=== PATIENT | male | born 1950 | race Caucasian/White ===

== ENCOUNTER 2023-03-10 12:13 | Emergency (ER) | payer MEDICARE, OTHER ==
[~2023-03-10] VITALS: Ht 177.8 cm; Wt 106.9 kg
[2023-03-10] MEDS ORDERED: LOSARTAN POTASS50 MG PO (12:23)
[2023-03-10] MEDS ORDERED: ROSUVASTATIN CA10 MG PO (12:23)
[2023-03-10] MEDS ORDERED: ALLOPURINOL300 MG PO (12:23)
[2023-03-10] MEDS ORDERED: ZOLPIDEM TARTRA10 MG PO (12:23)
[2023-03-10] MEDS ORDERED: ELIQUIS5 M1 PO (14:08)
[2023-03-10 14:17] VITALS: BP 137/81
== END 2023-03-10 14:17 | disposition home or self-care (01) ==
LOC: ED 12:13
DX: I82.4Z1 Acute embolism and thrombosis of unspecified deep veins of right distal lower extremity (principal); Z79.899 Other long term (current) drug therapy
CPT/HCPCS: 93971; 99283-25

== ENCOUNTER 2023-11-03 11:26 | Emergency (ER) | payer MEDICARE, OTHER ==
[~2023-11-03] VITALS: Ht 177.8 cm; Wt 106.6 kg
[~2023-11-03 11:26] MED LIST: ALLOPURINOL300 MG PO; ELIQUIS5 M1 PO; LOSARTAN POTASS50 MG PO; ROSUVASTATIN CA10 MG PO; ZOLPIDEM TARTRA10 MG PO
[2023-11-03 14:47] VITALS: BP 181/103
== END 2023-11-03 14:45 | disposition home or self-care (01) ==
LOC: ED 11:26
DX: I87.001 Postthrombotic syndrome without complications of right lower extremity (principal); I82.511 Chronic embolism and thrombosis of right femoral vein; I10 Essential (primary) hypertension; E78.00 Pure hypercholesterolemia, unspecified; Z79.899 Other long term (current) drug therapy
CPT/HCPCS: 93971; 99283-25

== ENCOUNTER 2025-08-08 19:53 | Emergency (ER) | payer MEDICARE, OTHER ==
[~2025-08-08] VITALS: Ht 177.8 cm; Wt 100.1 kg
[2025-08-08 22:23] LABS: INFLUENZA B NAA NEGATIVE (NEGATIVE); RESPIRATORY SYNCYTIAL VIR NAA NEGATIVE (NEGATIVE)
[2025-08-08] MEDS ORDERED: methylPREDNISolone 4 MG HOME.PACK PO ONE (22:30)
[2025-08-08] MEDS ORDERED: ALBUTEROL SULFATE 8 GM HOME.PACK INH ONE (22:30)
[2025-08-08 23:04] VITALS: BP 116/71
== END 2025-08-08 23:04 | disposition home or self-care (01) ==
LOC: ED 19:53
PROVIDERS: Emergency Medicine
DX: J20.9 Acute bronchitis, unspecified (principal); I10 Essential (primary) hypertension; Z79.899 Other long term (current) drug therapy; Z11.52 Encounter for screening for COVID-19
CPT/HCPCS: 71045; 87502; 94640; U0002